=== PATIENT | female | born 1945 | race Caucasian/White ===

== ENCOUNTER → 2017-01-10 | Outpatient (CLI) | payer MEDICARE, OTHER ==
[~2017-01-10] MED LIST: AMBIEN 5MG TABLE5 MG PO; AMOXICILLIN 8751 TAB PO; ASPIRIN 32325 MG/TAB PO; CALCIUM + D 6001 TAB PO; COUMADIN 1MG1 MG/TAB PO; COUMADIN 5MG5 MG/TAB PO; COZAAR 50MG50 MG/TAB PO; D-BIOTIN10 MG PO; DUO-KAPS1 CAP PO; DYAZIDE 25 MG-31 CAP PO; DYRENIUM 50MG C50 MG PO; FENTANYL 25 MCG TOP; FISH OIL1000 MG PO; FLONASE NASAL S16 GM NS; FOLIC ACID 40400 MCG PO; FORT1000TA PO; GLUCOPHAGE1000 MG PO; KLONOPIN 1MG1 MG PO; KLOR-CON M2020 MEQ PO; LASIX 40MG TABL40 MG PO; LIPITOR 10MG10 MG PO; LORTAB 10/500 51 TAB PO; MASON NATURAL2000 IU PO; MIRALAX PA17 GM/Dose PO; NASONEX SPRAY17 GM NS; NEXIUM 40MG40 MG PO; NITROQUICK0.4 MG SL; NORCO 325 MG-101 TAB PO; OXYGEN; PAXIL 20MG20 MG PO; PREMARIN 0.60.625 M1 VG; PRILOSEC 20MG20 MG PO; PROAIR HFA0.09 MG/AC IH; RESTASIS0.05% OP; SINGULAIR 110 MG/TAB PO; THEO-24100 MG PO; TIAZAC180 MG PO; TOPROL XL 50MG50 MG PO; TOPROL XL100 MG PO; TUMS500 MG PO; VITAMIN B-1000 MCG/T PO; VITAMIN C PUR1000 MG PO; VITAMIN C500 MG PO; ZOCOR 20MG20 MG PO; ZYRTEC 10MG10 MG PO
== END ==
LOC: COL.VAS 11:54
DX: I31.3 Pericardial effusion (noninflammatory) (principal)

== ENCOUNTER → 2017-10-22 | Outpatient (CLI) | payer MEDICARE, OTHER | LOC: COL.VAS 10:47 | DX: I27.0 Primary pulmonary hypertension (principal); I34.0 Nonrheumatic mitral (valve) insufficiency; I51.7 Cardiomegaly ==

== ENCOUNTER 2021-08-07 09:10 | Day surgery (SDC) | payer MEDICARE, OTHER ==
[~2021-08-07] VITALS: Ht 167.6 cm; Wt 91.5 kg
[~2021-08-07 09:10] MED LIST changes: +BETAPACE 120MG120 MG PO; +COUMADIN 2MG2 MG/TAB PO; +DULCOLAX TAB5 MG PO; +LIPITOR20 MG PO; +MAGNESIUM250 M1 PO; +PERIOSTAT PO; +SYNTHROID0.05 MG/TA PO; +VIIBRYD10 MG PO; +VITAMIND3 5000 PO
[2021-08-07] MEDS ORDERED: KLONOPIN 1MG1 MG PO (10:19)
[2021-08-07] MEDS ORDERED: GLUCOPHAGE1000 MG PO (10:20)
[2021-08-07] MEDS ORDERED: GLUCOPHAGE500 MG/TAB PO (10:20)
[2021-08-07] MEDS ORDERED: COUMADIN 22.5 MG/TAB PO (10:21)
[2021-08-07] MEDS ORDERED: COUMADIN 5MG5 MG/TAB PO (10:22)
[2021-08-07] MEDS ORDERED: LASIX 20MG TABL20 MG PO (10:23)
[2021-08-07] MEDS ORDERED: SINGULAIR 110 MG/TAB PO (10:23)
[2021-08-07] MEDS ORDERED: TOPROL XL 25MG25 MG PO (10:24)
[2021-08-07] MEDS ORDERED: KLOR-CON20 MEQ PO (10:25)
[2021-08-07] MEDS ORDERED: LIPITOR20 MG PO (10:26)
[2021-08-07] MEDS ORDERED: ABILIFY2 MG PO (10:26)
[2021-08-07] MEDS ORDERED: PRILOSEC 20MG20 MG PO (10:26)
[2021-08-07] MEDS ORDERED: ZYRTEC 10MG10 MG PO (10:34)
[2021-08-07] MEDS ORDERED: CALCIUM 600-D 61 TAB PO (10:41)
[2021-08-07] MEDS ORDERED: OMEGA-3 1000 MG1 CAP PO (10:41)
[2021-08-07] MEDS ORDERED: FENTANYL 25 MCG TD (10:42)
[2021-08-07] MEDS ORDERED: AMOXICILLIN 50500 MG PO (10:43)
[2021-08-07] MEDS ORDERED: FLONASE SENSIM9.9 ML NS (10:43)
[2021-08-07] MEDS ORDERED: NORCO 325 MG-101 TAB PO (10:44)
[2021-08-07] MEDS ORDERED: SYNTHROID0.05 MG/TA PO (10:44)
[2021-08-07] MEDS ORDERED: BETAPACE 120MG120 MG PO (10:45)
[2021-08-07] MEDS ORDERED: TUMS500 MG PO (10:45)
[2021-08-07 10:46] VITALS: BP 128/59; PULSE 65; TEMP 97.8
[2021-08-07] MEDS ORDERED: VIIBRYD40 MG PO (10:46)
[2021-08-07 10:55] VITALS: BP 125/58; PULSE 65; TEMP 97.1
--- NOTE | 2021-08-07 10:55 | NUR ---
PATIENT BROUGHT BACK TO BAY 4 VIA CART. AMBULATED TO CHAIR WITHOUT DIFFICULTY. PLACED ON MONITORS, VITAL SIGNS STABLE. REMAINS AT BEDSIDE. REPORT RECIEVED FROM EMY ALLEN, ALL QUESTIONS ANSWERED. PATIENT REQUESTING SPRITE AND PUDDING AT THIS TIME. WARM BLANKET PROVIDED. DR. PERDUE AT BEDSIDE TO DISCUSS RESULTS WITH PATIENT AND FAMILY. WILL CONTINUE TO MONITOR.
[2021-08-07 11:10] VITALS: BP 115/61; PULSE 65
--- NOTE | 2021-08-07 11:10 | NUR ---
PATIENT IS TOLERATING FOOD AND DRINK WITHOUT DIFFICULTY. VITAL SIGNS REMAIN STABLE. DENIES ANY PAIN OR NAUSEA. WILL CONTINUE TO MONITOR.
[2021-08-07 11:25] VITALS: BP 123/75; PULSE 63
--- NOTE | 2021-08-07 11:25 | NUR ---
PATIENT STATES SHE FEELS READY TO GO HOME. VITAL SIGNS STABLE. IV REMOVED, INTACT. PATIENT TO GET DRESSED AT THIS TIME.
--- NOTE | 2021-08-07 11:32 | NUR ---
DISHCARGE INSTRUCTIONS REVIEWED WITH PATIENT AND . PER DR. PERDUE MAY RESUME BLOOD THINNER TONIGHT. ALL QUESTIONS ANSWERED.
--- NOTE | 2021-08-07 11:35 | NUR ---
PATIENT BROUGHT DOWN TO LOBBY VIA WHEEL CHAIR. PATIENT TO DRIVE HOME. ALL BELONGINGS IN HAND.
== END 2021-08-07 11:35 | disposition home or self-care (01) ==
LOC: SDCO 09:10
DX: K29.30 Chronic superficial gastritis without bleeding (principal); K21.9 Gastro-esophageal reflux disease without esophagitis; G47.33 Obstructive sleep apnea (adult) (pediatric); I48.91 Unspecified atrial fibrillation; I25.10 Atherosclerotic heart disease of native coronary artery without angina pectoris; F41.9 Anxiety disorder, unspecified; J44.9 Chronic obstructive pulmonary disease, unspecified; I38 Endocarditis, valve unspecified; Z20.822 Contact with and (suspected) exposure to COVID-19; E78.2 Mixed hyperlipidemia; F32.9 Major depressive disorder, single episode, unspecified; E03.9 Hypothyroidism, unspecified; G89.29 Other chronic pain; E66.9 Obesity, unspecified; Z79.890 Hormone replacement therapy; Z95.818 Presence of other cardiac implants and grafts; Z98.890 Other specified postprocedural states; Z79.891 Long term (current) use of opiate analgesic; Z79.899 Other long term (current) drug therapy; Z95.5 Presence of coronary angioplasty implant and graft; Z79.01 Long term (current) use of anticoagulants; Z91.09 Other allergy status, other than to drugs and biological substances
CPT/HCPCS: J2704

== ENCOUNTER → 2022-01-21 | Outpatient (CLI) | payer MEDICARE, OTHER ==
[~2022-01-21] MED LIST changes: +ABILIFY2 MG PO; +AMOXICILLIN 50500 MG PO; +CALCIUM 600-D 61 TAB PO; +COUMADIN 22.5 MG/TAB PO; +FENTANYL 25 MCG TD; +FLONASE SENSIM9.9 ML NS; +GLUCOPHAGE500 MG/TAB PO; +KLOR-CON20 MEQ PO; +LASIX 20MG TABL20 MG PO; +OMEGA-3 1000 MG1 CAP PO; +TOPROL XL 25MG25 MG PO; +VIIBRYD40 MG PO
== END ==
LOC: DIA.ED 11:19
DX: E11.40 Type 2 diabetes mellitus with diabetic neuropathy, unspecified (principal); Z79.84 Long term (current) use of oral hypoglycemic drugs
CPT/HCPCS: G0108